=== PATIENT | male | born 1970 | race Caucasian/White ===

== ENCOUNTER → 2016-03-06 | Outpatient (CLI) | payer BC | LOC: LAB 09:52 | DX: I10 Essential (primary) hypertension (principal) ==

== ENCOUNTER → 2016-10-20 | Outpatient (CLI) | payer BC | LOC: RAD 10:00 | DX: M46.1 Sacroiliitis, not elsewhere classified (principal); M54.5 Low back pain ==

== ENCOUNTER → 2016-11-09 | Outpatient (CLI) | payer BC | LOC: LAB 14:35 | DX: R05 Cough (principal) ==

== ENCOUNTER 2016-11-25 10:15 | Outpatient (RCR) | payer BC ==
[2016-11-25] MEDS ORDERED: HYDROCHLOROTHIA1 T15 PO (13:34)
== END 2016-11-25 11:00 | disposition home or self-care (01) ==
LOC: PT 10:15
DX: M46.1 Sacroiliitis, not elsewhere classified (principal); M54.5 Low back pain

== ENCOUNTER → 2016-11-25 | Outpatient (CLI) | payer BC ==
[~2016-11-25] VITALS: Ht 185.4 cm; Wt 108.6 kg
[~2016-11-25] MED LIST: HYDROCHLOROTHIA1 T15 PO
[2016-11-25 13:10] VITALS: BP 143/96
[2016-11-25 14:26] VITALS: BP 152/96
== END ==
LOC: RAD 11:49
DX: R05 Cough (principal); R50.9 Fever, unspecified; R06.00 Dyspnea, unspecified; R91.8 Other nonspecific abnormal finding of lung field
CPT/HCPCS: J7030

== ENCOUNTER → 2016-12-15 | Outpatient (CLI) | payer BC ==
[2016-11-25 14:26] VITALS: BP 152/96
[2016-12-15 09:45] LABS: ALBUMIN 3.9 g/dL (3.5-5.0); BUN/CREATININE RATIO 9.6 (6.0-26.0); CALCIUM 8.9 mg/dL (8.4-10.2); POTASSIUM 3.7 mmol/L (3.6-5.0); TOTAL BILIRUBIN 0.8 mg/dL (0.2-1.3); TOTAL PROTEIN 6.9 g/dL (6.3-8.2)
== END ==
LOC: LAB 08:56
PROVIDERS: Nurse Practitioner Family
DX: E29.1 Testicular hypofunction (principal)

== ENCOUNTER → 2016-12-18 | Outpatient (CLI) | payer BC ==
[2016-11-25 14:26] VITALS: BP 152/96
== END ==
LOC: RAD 13:24
DX: J18.1 Lobar pneumonia, unspecified organism (principal)

== ENCOUNTER → 2016-12-21 | Outpatient (CLI) | payer BC ==
[2016-11-25 14:26] VITALS: BP 152/96
== END ==
LOC: LAB 10:51
DX: E29.1 Testicular hypofunction (principal)

== ENCOUNTER → 2016-12-23 | Outpatient (CLI) | payer BC ==
[2016-11-25 14:26] VITALS: BP 152/96
== END ==
LOC: RAD 07:00
DX: M51.36 Other intervertebral disc degeneration, lumbar region (principal)

== ENCOUNTER → 2017-01-04 | Outpatient (CLI) | payer BC ==
[2016-11-25 14:26] VITALS: BP 152/96
== END ==
LOC: RAD 14:23
DX: R05 Cough (principal)

== ENCOUNTER → 2017-04-14 | Outpatient (CLI) | payer BC ==
[2016-11-25 14:26] VITALS: BP 152/96
[2017-04-14 11:06] LABS: STREP SCREEN NEGATIVE (NEGATIVE)
== END ==
LOC: LAB 10:30
PROVIDERS: Family Medicine
DX: J06.9 Acute upper respiratory infection, unspecified (principal)

== ENCOUNTER → 2017-10-27 | Outpatient (CLI) | payer BC ==
[2016-11-25 14:26] VITALS: BP 152/96
[2017-10-27 11:42] LABS: BASO # 0.1 (0.02-0.10); EOS # 0.1 (0.04-0.40); EOS % 1.3 % (0.0-4.0); MEAN CELL VOLUME 82 fl (78-100); MEAN CORPUSCULAR HEMOGLOBIN 29 pg (27-31); MEAN CORPUSCULAR HGB CONC 36 g/dL (33-37); MEAN PLATELET VOLUME 10.2 fl (7.4-10.4); MONO # 0.9 (0.20-0.80); NEU # 5.7 (1.40-6.50); PLATELET COUNT 285 K/mm3 (130-400); RED BLOOD COUNT 7.49 M/mm3 (4.20-5.60); RED CELL DISTRIBUTION WIDTH 15.6 % (11.5-14.5); WHITE BLOOD COUNT 8.8 K/mm3 (4.8-10.8)
[2017-10-27 11:52] LABS: ALBUMIN 4.9 g/dL (3.5-5.0); CALCIUM 9.6 mg/dL (8.4-10.2); POTASSIUM 4.2 mmol/L (3.6-5.0); TOTAL BILIRUBIN 1.8 mg/dL (0.2-1.3); TOTAL PROTEIN 8.4 g/dL (6.3-8.2)
[2017-10-27 12:03] LABS: HEMATOCRIT 61.4 % (42.0-52.0)
== END ==
LOC: LAB 10:53
PROVIDERS: Physician Assistant
DX: I10 Essential (primary) hypertension (principal); E29.1 Testicular hypofunction; G47.33 Obstructive sleep apnea (adult) (pediatric)

== ENCOUNTER → 2017-12-21 | Outpatient (CLI) | payer BC ==
[2016-11-25 14:26] VITALS: BP 152/96
[2017-12-21 15:23] LABS: BASO # 0.1 (0.02-0.10); EOS # 0.1 (0.04-0.40); EOS % 1.6 % (0.0-4.0); HEMATOCRIT 49.5 % (42.0-52.0); HEMOGLOBIN 17.5 g/dL (13.5-18.0); LYMPH# 1.5 (1.50-4.00); MEAN CELL VOLUME 82 fl (78-100); MEAN CORPUSCULAR HEMOGLOBIN 29 pg (27-31); MEAN CORPUSCULAR HGB CONC 35 g/dL (33-37); MEAN PLATELET VOLUME 10.3 fl (7.4-10.4); MONO # 0.6 (0.20-0.80); NEU # 4.1 (1.40-6.50); PLATELET COUNT 221 K/mm3 (130-400); RED BLOOD COUNT 6.02 M/mm3 (4.20-5.60); RED CELL DISTRIBUTION WIDTH 13.9 % (11.5-14.5); WHITE BLOOD COUNT 6.3 K/mm3 (4.8-10.8)
== END ==
LOC: LAB 14:42
PROVIDERS: Internal Medicine
DX: D75.1 Secondary polycythemia (principal)

== ENCOUNTER → 2017-12-28 | Outpatient (CLI) | payer BC ==
[2016-11-25 14:26] VITALS: BP 152/96
[2017-12-28 10:22] LABS: BASO # 0.1 (0.02-0.10); EOS # 0.2 (0.04-0.40); EOS % 2.6 % (0.0-4.0); HEMATOCRIT 48.1 % (42.0-52.0); LYMPH# 1.5 (1.50-4.00); MEAN CELL VOLUME 83 fl (78-100); MEAN CORPUSCULAR HEMOGLOBIN 30 pg (27-31); MEAN CORPUSCULAR HGB CONC 35 g/dL (33-37); MEAN PLATELET VOLUME 9.8 fl (7.4-10.4); MONO # 0.6 (0.20-0.80); NEU # 3.5 (1.40-6.50); PLATELET COUNT 235 K/mm3 (130-400); RED BLOOD COUNT 5.77 M/mm3 (4.20-5.60); RED CELL DISTRIBUTION WIDTH 14.1 % (11.5-14.5); WHITE BLOOD COUNT 5.9 K/mm3 (4.8-10.8)
== END ==
LOC: LAB 10:06
PROVIDERS: Physician Assistant
DX: D75.1 Secondary polycythemia (principal)

== ENCOUNTER → 2018-01-04 | Outpatient (CLI) | payer BC ==
[2016-11-25 14:26] VITALS: BP 152/96
[2018-01-04 15:23] LABS: EOS # 0.2 (0.04-0.40); EOS % 2.3 % (0.0-4.0); HEMATOCRIT 45.8 % (42.0-52.0); HEMOGLOBIN 16.3 g/dL (13.5-18.0); LYMPH# 1.8 (1.50-4.00); MEAN CELL VOLUME 84 fl (78-100); MEAN CORPUSCULAR HEMOGLOBIN 30 pg (27-31); MEAN CORPUSCULAR HGB CONC 36 g/dL (33-37); MEAN PLATELET VOLUME 10.8 fl (7.4-10.4); MONO # 0.5 (0.20-0.80); NEU # 4.5 (1.40-6.50); PLATELET COUNT 265 K/mm3 (130-400); RED BLOOD COUNT 5.48 M/mm3 (4.20-5.60); RED CELL DISTRIBUTION WIDTH 14.4 % (11.5-14.5); WHITE BLOOD COUNT 7.1 K/mm3 (4.8-10.8)
== END ==
LOC: LAB 15:00
PROVIDERS: Physician Assistant
DX: D75.1 Secondary polycythemia (principal)

== ENCOUNTER → 2018-01-11 | Outpatient (CLI) | payer BC ==
[2016-11-25 14:26] VITALS: BP 152/96
[2018-01-11 15:03] LABS: HEMATOCRIT 45.2 % (42.0-52.0); HEMOGLOBIN 15.9 g/dL (13.5-18.0)
== END ==
LOC: LAB 14:39
PROVIDERS: Internal Medicine
DX: D75.1 Secondary polycythemia (principal)

== ENCOUNTER → 2018-01-18 | Outpatient (CLI) | payer BC ==
[2016-11-25 14:26] VITALS: BP 152/96
[2018-01-18 14:56] LABS: BASO # 0.1 (0.02-0.10); EOS # 0.1 (0.04-0.40); EOS % 2.5 % (0.0-4.0); HEMOGLOBIN 15.9 g/dL (13.5-18.0); LYMPH# 1.8 (1.50-4.00); MEAN CELL VOLUME 85 fl (78-100); MEAN CORPUSCULAR HEMOGLOBIN 30 pg (27-31); MEAN CORPUSCULAR HGB CONC 35 g/dL (33-37); MONO # 0.6 (0.20-0.80); NEU # 3.1 (1.40-6.50); PLATELET COUNT 224 K/mm3 (130-400); RED BLOOD COUNT 5.31 M/mm3 (4.20-5.60); RED CELL DISTRIBUTION WIDTH 14.5 % (11.5-14.5); WHITE BLOOD COUNT 5.6 K/mm3 (4.8-10.8)
== END ==
LOC: LAB 14:08
PROVIDERS: Internal Medicine
DX: D75.1 Secondary polycythemia (principal)

== ENCOUNTER → 2018-02-16 | Outpatient (CLI) | payer BC ==
[2016-11-25 14:26] VITALS: BP 152/96
[2018-02-16 11:20] LABS: EOS # 0.1 (0.04-0.40); EOS % 2.2 % (0.0-4.0); HEMOGLOBIN 16.5 g/dL (13.5-18.0); LYMPH# 1.6 (1.50-4.00); MEAN CELL VOLUME 87 fl (78-100); MEAN CORPUSCULAR HEMOGLOBIN 30 pg (27-31); MEAN CORPUSCULAR HGB CONC 34 g/dL (33-37); MEAN PLATELET VOLUME 10.1 fl (7.4-10.4); MONO # 0.6 (0.20-0.80); NEU # 3.9 (1.40-6.50); PLATELET COUNT 248 K/mm3 (130-400); RED BLOOD COUNT 5.53 M/mm3 (4.20-5.60); RED CELL DISTRIBUTION WIDTH 13.5 % (11.5-14.5); WHITE BLOOD COUNT 6.3 K/mm3 (4.8-10.8)
== END ==
LOC: LAB 10:57
PROVIDERS: Physician Assistant
DX: I10 Essential (primary) hypertension (principal); E29.1 Testicular hypofunction; L73.9 Follicular disorder, unspecified

== ENCOUNTER 2018-03-01 10:11 | Emergency (ER) | payer BC ==
[~2018-03-01] VITALS: Ht 185.4 cm; Wt 119.1 kg
[2018-03-01] MEDS ORDERED: MAALOX ADVANCED1 CTB PO (11:10)
[2018-03-01] MEDS ORDERED: TESTOSTERO100 MG/1 M IM (11:10)
[2018-03-01 11:19] LABS: EOS # 0.1 (0.04-0.40); EOS % 1.4 % (0.0-4.0); HEMATOCRIT 49.9 % (42.0-52.0); HEMOGLOBIN 17.5 g/dL (13.5-18.0); LYMPH# 1.4 (1.50-4.00); MEAN CELL VOLUME 85 fl (78-100); MEAN CORPUSCULAR HEMOGLOBIN 30 pg (27-31); MEAN CORPUSCULAR HGB CONC 35 g/dL (33-37); MEAN PLATELET VOLUME 10.4 fl (7.4-10.4); MONO # 0.6 (0.20-0.80); NEU # 5.9 (1.40-6.50); PLATELET COUNT 204 K/mm3 (130-400); RED BLOOD COUNT 5.84 M/mm3 (4.20-5.60); RED CELL DISTRIBUTION WIDTH 13.1 % (11.5-14.5)
[2018-03-01 12:22] LABS: ALBUMIN 4.9 g/dL (3.5-5.0); CALCIUM 9.7 mg/dL (8.4-10.2); POTASSIUM 4.1 mmol/L (3.6-5.0); TOTAL BILIRUBIN 0.7 mg/dL (0.2-1.3)
[2018-03-01] MEDS ORDERED: NORCO 325 MG-51 TA1 PO (13:06)
[2018-03-01] MEDS ORDERED: ZOFRAN4 M2 PO (13:06)
[2018-03-01 13:15] VITALS: BP 142/99
== END 2018-03-01 13:20 | disposition home or self-care (01) ==
LOC: ED 10:11
PROVIDERS: Nurse Practitioner Primary Care
DX: R10.11 Right upper quadrant pain (principal); I10 Essential (primary) hypertension
CPT/HCPCS: C9113; J2405

== ENCOUNTER → 2018-03-02 | Outpatient (CLI) | payer BC ==
[2018-03-01 13:15] VITALS: BP 142/99
[~2018-03-02] MED LIST changes: +MAALOX ADVANCED1 CTB PO; +NORCO 325 MG-51 TA1 PO; +TESTOSTERO100 MG/1 M IM; +ZOFRAN4 M2 PO
== END ==
LOC: RAD 08:46
DX: R10.11 Right upper quadrant pain (principal)

== ENCOUNTER → 2018-04-07 | Outpatient (CLI) | payer BC | LOC: RAD 08:49 | DX: K82.9 Disease of gallbladder, unspecified (principal); N28.89 Other specified disorders of kidney and ureter; K80.10 Calculus of gallbladder with chronic cholecystitis without obstruction | CPT/HCPCS: Q9967 ==

== ENCOUNTER → 2018-08-02 | Outpatient (CLI) | payer OTHER | LOC: RAD 11:12 | DX: S20.219A Contusion of unspecified front wall of thorax, initial encounter (principal); M25.531 Pain in right wrist; M54.2 Cervicalgia; M25.511 Pain in right shoulder ==

== ENCOUNTER 2018-12-08 11:30 | Outpatient (RCR) | payer BC ==
[~2018-12-08 11:30] MED LIST changes: +DEPO-TESTOS200 MG/M1 IM; +LISINOPRIL40 MG PO; +VIAGRA 25MG TAB25 MG
[2018-12-22] MEDS ORDERED: LEXAPRO 10MG10 MG PO (11:10)
== END 2018-12-08 12:00 | disposition home or self-care (01) ==
LOC: PT 11:30
DX: S46.819A Strain of other muscles, fascia and tendons at shoulder and upper arm level, unspecified arm, initial encounter (principal)

== ENCOUNTER → 2018-12-22 | Outpatient (CLI) | payer BC ==
[2018-12-08 11:34] VITALS: BP 162/108
[~2018-12-22] MED LIST changes: +LEXAPRO 10MG10 MG PO
[2018-12-22 11:02] LABS: HEMATOCRIT 52.3 % (42.0-52.0); HEMOGLOBIN 17.9 g/dL (13.5-18.0); RED BLOOD COUNT 6.2 M/mm3 (4.20-5.60); RED CELL DISTRIBUTION WIDTH 14.6 % (11.5-14.5); WHITE BLOOD COUNT 4.9 K/mm3 (4.8-10.8)
== END ==
LOC: LAB 10:39
PROVIDERS: Urology
DX: C64.1 Malignant neoplasm of right kidney, except renal pelvis (principal)

== ENCOUNTER → 2019-01-19 | Outpatient (CLI) | payer BC ==
[2019-01-05 11:17] VITALS: BP 149/109
[2019-01-19 10:49] LABS: HEMATOCRIT 52.6 % (42.0-52.0); HEMOGLOBIN 17.8 g/dL (13.5-18.0); MEAN PLATELET VOLUME 10.1 fl (7.4-10.4); RED BLOOD COUNT 6.22 M/mm3 (4.20-5.60); RED CELL DISTRIBUTION WIDTH 13.9 % (11.5-14.5)
== END ==
LOC: LAB 10:24
PROVIDERS: Urology
DX: C64.1 Malignant neoplasm of right kidney, except renal pelvis (principal)

== ENCOUNTER 2019-02-16 12:51 | Outpatient (RCR) | payer BC ==
[2018-11-24 14:04] VITALS: BP 136/86
[2018-12-08 11:34] VITALS: BP 162/108
[2018-12-22 11:08] VITALS: BP 157/119
[2019-01-05 11:17] VITALS: BP 149/109
[2019-01-19 10:48] VITALS: BP 147/115
[2019-01-19 10:59] VITALS: BP 147/118
[2019-02-02 11:02] VITALS: BP 154/98
[~2019-02-16] VITALS: Ht 185.4 cm; Wt 111.4 kg
[2019-02-16 13:00] VITALS: BP 159/97
== END 2019-02-22 | disposition still patient (30) ==
LOC: AMSURD
DX: R97.20 Elevated prostate specific antigen [PSA] (principal)
CPT/HCPCS: J1071

== ENCOUNTER → 2019-02-16 | Outpatient (CLI) | payer BC ==
[2019-02-02 11:02] VITALS: BP 154/98
[2019-02-16 12:53] LABS: HEMATOCRIT 58.5 % (42.0-52.0); HEMOGLOBIN 19.4 g/dL (13.5-18.0); MEAN PLATELET VOLUME 9.9 fl (7.4-10.4); WHITE BLOOD COUNT 6.7 K/mm3 (4.8-10.8)
== END ==
LOC: LAB 12:43
PROVIDERS: Urology
DX: C64.1 Malignant neoplasm of right kidney, except renal pelvis (principal)

== ENCOUNTER → 2019-03-23 | Outpatient (CLI) | payer BC ==
[2019-03-09 11:08] VITALS: BP 145/91
[~2019-03-23] MED LIST changes: +AMLODIPINE BESYL5 MG PO; +SILDENAFIL CITR20 M1 PO
[2019-03-23 11:27] LABS: HEMATOCRIT 59.2 % (42.0-52.0); RED BLOOD COUNT 7.32 M/mm3 (4.20-5.60); RED CELL DISTRIBUTION WIDTH 15.1 % (11.5-14.5); WHITE BLOOD COUNT 5.9 K/mm3 (4.8-10.8)
== END ==
LOC: LAB 10:59
PROVIDERS: Urology
DX: R97.20 Elevated prostate specific antigen [PSA] (principal)

== ENCOUNTER → 2019-05-19 | Outpatient (CLI) | payer BC ==
[2019-05-18 14:37] VITALS: BP 158/92
[~2019-05-19] MED LIST changes: +VALIUM 5MG T5 MG/TAB PO
== END ==
LOC: RAD 10:00
DX: C64.1 Malignant neoplasm of right kidney, except renal pelvis (principal); N28.89 Other specified disorders of kidney and ureter; Z90.5 Acquired absence of kidney

== ENCOUNTER → 2019-06-05 | Outpatient (CLI) | payer BC ==
[2019-05-18 14:37] VITALS: BP 158/92
[~2019-06-05] MED LIST changes: +BYSTOLIC10 MG PO
[2019-06-06 16:08] LABS: MICROALBUMIN RANDOM <0.5 mg/dL (0.0-1.7)
== END ==
LOC: LAB 15:39
PROVIDERS: Internal Medicine Interventional Cardiology
DX: I10 Essential (primary) hypertension (principal)

== ENCOUNTER → 2019-06-30 | Outpatient (CLI) | payer BC ==
[2019-06-05 15:52] VITALS: BP 133/86
[2019-06-30 14:06] LABS: HEMATOCRIT 57.3 % (42.0-52.0); HEMOGLOBIN 19.9 g/dL (13.5-18.0)
== END ==
LOC: LAB 13:52
PROVIDERS: Urology
DX: D75.1 Secondary polycythemia (principal); E29.1 Testicular hypofunction

== ENCOUNTER → 2019-08-10 | Outpatient (CLI) | payer BC ==
[2019-07-27 11:25] VITALS: BP 124/84
[~2019-08-10] MED LIST changes: +BUSPIRONE5 MG PO
[2019-08-10 10:37] LABS: EOS # 0.1 (0.04-0.40); HEMATOCRIT 55.8 % (42.0-52.0); HEMOGLOBIN 18.9 g/dL (13.5-18.0); LYMPH# 1.5 (1.50-4.00); MEAN CELL VOLUME 81 fl (78-100); MEAN CORPUSCULAR HEMOGLOBIN 27 pg (27-31); MEAN CORPUSCULAR HGB CONC 34 g/dL (33-37); MEAN PLATELET VOLUME 9.9 fl (7.4-10.4); MONO # 0.7 (0.20-0.80); NEU # 4.6 (1.40-6.50); PLATELET COUNT 289 K/mm3 (130-400); RED CELL DISTRIBUTION WIDTH 14.2 % (11.5-14.5); WHITE BLOOD COUNT 7.1 K/mm3 (4.8-10.8)
== END ==
LOC: LAB 10:07
PROVIDERS: Urology
DX: D75.1 Secondary polycythemia (principal); E29.1 Testicular hypofunction

== ENCOUNTER 2019-08-24 10:35 | Outpatient (RCR) | payer BC ==
[2019-06-05 15:52] VITALS: BP 133/86
[2019-06-30 14:51] VITALS: BP 129/99
[2019-07-13 11:15] VITALS: BP 123/86
[2019-07-27 11:25] VITALS: BP 124/84
[2019-08-10 11:15] VITALS: BP 112/80
[~2019-08-24] VITALS: Ht 185.4 cm; Wt 111.4 kg
[2019-08-24 10:30] VITALS: BP 134/90
== END 2019-09-03 | disposition still patient (30) ==
LOC: AMSURD
DX: D75.1 Secondary polycythemia (principal)
CPT/HCPCS: J1071

== ENCOUNTER → 2019-09-06 | Outpatient (CLI) | payer BC ==
[2019-08-24 10:30] VITALS: BP 134/90
[2019-09-06 12:41] LABS: HEMATOCRIT 55.5 % (42.0-52.0); HEMOGLOBIN 18.3 g/dL (13.5-18.0)
== END ==
LOC: LAB 12:29
PROVIDERS: Physician Assistant
DX: D75.1 Secondary polycythemia (principal)

== ENCOUNTER → 2019-11-09 | Outpatient (CLI) | payer BC ==
[2019-10-26 11:11] VITALS: BP 152/96
[2019-11-09 10:18] LABS: HEMATOCRIT 49.5 % (42.0-52.0); HEMOGLOBIN 16.2 g/dL (13.5-18.0)
== END ==
LOC: LAB 10:06
PROVIDERS: Urology
DX: D75.1 Secondary polycythemia (principal); E29.1 Testicular hypofunction

== ENCOUNTER → 2019-11-23 10:51 | Outpatient (RCR) | payer BC ==
[2019-09-06 13:40] VITALS: BP 143/92
[2019-10-12 11:49] VITALS: BP 120/86
[2019-10-26 11:11] VITALS: BP 152/96
[2019-11-09 10:46] VITALS: BP 144/101
[~2019-11-23] VITALS: Ht 185.4 cm; Wt 111.4 kg
[2019-11-23 10:50] VITALS: BP 172/86
== END | disposition still patient (30) ==
LOC: AMSURD 09-04
DX: D75.1 Secondary polycythemia (principal)
CPT/HCPCS: J1071

== ENCOUNTER 2019-12-07 11:20 | Outpatient (RCR) | payer BC ==
[~2019-12-07] VITALS: Ht 185.4 cm; Wt 111.4 kg
[2019-12-07 11:32] VITALS: BP 147/86
== END 2020-03-04 | disposition home or self-care (01) ==
LOC: AMSURD
DX: D76.1 Hemophagocytic lymphohistiocytosis (principal)
CPT/HCPCS: J1071

== ENCOUNTER → 2019-12-07 | Outpatient (CLI) | payer BC ==
[2019-11-23 10:50] VITALS: BP 172/86
[2019-12-07 10:39] LABS: HEMOGLOBIN 16.1 g/dL (13.5-18.0)
== END ==
LOC: LAB 10:29
PROVIDERS: Urology
DX: D76.1 Hemophagocytic lymphohistiocytosis (principal)

== ENCOUNTER → 2020-01-03 | Outpatient (CLI) | payer BC ==
[2019-12-07 11:32] VITALS: BP 147/86
== END ==
LOC: LAB 07:39
DX: U07.1 COVID-19 (principal)

== ENCOUNTER → 2020-02-01 | Outpatient (CLI) | payer BC ==
[2020-02-01 11:45] LABS: HEMATOCRIT 50.7 % (42.0-52.0); HEMOGLOBIN 16.2 g/dL (13.5-18.0)
== END ==
LOC: LAB 11:16
PROVIDERS: Urology
DX: D75.1 Secondary polycythemia (principal)

== ENCOUNTER → 2020-06-04 | Outpatient (CLI) | payer BC ==
[2020-06-04 08:45] LABS: POTASSIUM 4.1 mmol/L (3.5-5.1)
[2020-06-04 08:46] LABS: CALCIUM 8.9 mg/dL (8.3-10.5)
[2020-06-04 08:49] LABS: BASO # 0.1 (0.02-0.10); EOS # 0.2 (0.04-0.40); EOS % 2.7 % (0.0-4.0); HEMATOCRIT 47.4 % (42.0-52.0); HEMOGLOBIN 15.6 g/dL (13.5-18.0); LYMPH# 2.3 (1.50-4.00); MEAN CELL VOLUME 77 fl (78-100); MEAN CORPUSCULAR HEMOGLOBIN 25 pg (27-31); MEAN CORPUSCULAR HGB CONC 33 g/dL (33-37); MEAN PLATELET VOLUME 10.2 fl (7.4-10.4); MONO # 0.6 (0.20-0.80); NEU # 3.6 (1.40-6.50); PLATELET COUNT 242 K/mm3 (130-400); RED BLOOD COUNT 6.18 M/mm3 (4.20-5.60); RED CELL DISTRIBUTION WIDTH 15.9 % (11.5-14.5); WHITE BLOOD COUNT 6.8 K/mm3 (4.8-10.8)
== END ==
LOC: LAB 07:45 → RAD 08:00
PROVIDERS: Urology
DX: C64.1 Malignant neoplasm of right kidney, except renal pelvis (principal); E29.1 Testicular hypofunction; Z90.49 Acquired absence of other specified parts of digestive tract; Z98.890 Other specified postprocedural states
CPT/HCPCS: Q9967

== ENCOUNTER → 2021-06-18 | Outpatient (CLI) | payer BC ==
[2021-06-18 10:53] LABS: HEMATOCRIT 50.3 % (42.0-52.0); HEMOGLOBIN 17.8 g/dL (13.5-18.0); MEAN PLATELET VOLUME 9.9 fl (7.4-10.4); RED BLOOD COUNT 5.96 M/mm3 (4.20-5.60); RED CELL DISTRIBUTION WIDTH 12.9 % (11.5-14.5)
== END ==
LOC: RAD 08:59 → LAB 08:59 → RAD 09:00
PROVIDERS: Urology
DX: Z12.5 Encounter for screening for malignant neoplasm of prostate (principal); E29.1 Testicular hypofunction

== ENCOUNTER → 2021-08-20 | Outpatient (CLI) | payer BC ==
[2021-08-20 11:53] LABS: POTASSIUM 4.6 mmol/L (3.5-5.1)
[2021-08-20 11:54] LABS: ALBUMIN 4.6 g/dL (3.5-5.0)
[2021-08-20 11:55] LABS: CALCIUM 9.4 mg/dL (8.3-10.5)
[2021-08-20 11:56] LABS: TOTAL PROTEIN 7.5 g/dL (6.4-8.3)
[2021-08-20 11:58] LABS: TOTAL BILIRUBIN 0.8 mg/dL (0.2-1.2)
== END ==
LOC: LAB 11:05
PROVIDERS: Physician Assistant
DX: Z00.00 Encounter for general adult medical examination without abnormal findings (principal); Z13.1 Encounter for screening for diabetes mellitus; Z13.29 Encounter for screening for other suspected endocrine disorder; I10 Essential (primary) hypertension; H93.11 Tinnitus, right ear; B35.1 Tinea unguium; K90.9 Intestinal malabsorption, unspecified; R20.0 Anesthesia of skin

== ENCOUNTER → 2021-09-18 | Outpatient (CLI) | payer BC ==
[2021-09-18 12:21] LABS: ALBUMIN 4.3 g/dL (3.5-5.0)
[2021-09-18 12:24] LABS: TOTAL PROTEIN 7.2 g/dL (6.4-8.3)
[2021-09-18 12:26] LABS: TOTAL BILIRUBIN 0.7 mg/dL (0.2-1.2)
[2021-09-18 12:30] LABS: DIRECT BILIRUBIN 0.2 mg/dL (0.0-0.5)
== END ==
LOC: LAB 11:28
PROVIDERS: Physician Assistant
DX: Z51.81 Encounter for therapeutic drug level monitoring (principal)

== ENCOUNTER → 2022-04-24 | Outpatient (CLI) | payer BC | LOC: LAB 10:31 | DX: B34.9 Viral infection, unspecified (principal); Z20.822 Contact with and (suspected) exposure to COVID-19 ==

== ENCOUNTER → 2022-12-22 | Outpatient (CLI) | payer BC ==
[2022-12-22 13:11] LABS: ALBUMIN 4.5 g/dL (3.5-5.0)
[2022-12-22 13:14] LABS: TOTAL PROTEIN 7.5 g/dL (6.4-8.3)
[2022-12-22 13:16] LABS: TOTAL BILIRUBIN 0.7 mg/dL (0.2-1.2)
[2022-12-22 13:19] LABS: DIRECT BILIRUBIN 0.3 mg/dL (0.0-0.5)
== END ==
LOC: LAB 12:44
PROVIDERS: Physician Assistant
DX: B35.1 Tinea unguium (principal)

== ENCOUNTER → 2024-06-07 | Outpatient (CLI) | payer BC ==
[2024-06-07 14:34] LABS: BASO # 0.04 K/mm3 (0.02-0.10); EOS # 0.17 K/mm3 (0.04-0.40); EOS % 2.7 % (0.0-4.0); HEMATOCRIT 47.6 % (42.0-52.0); HEMOGLOBIN 16.8 g/dL (13.5-18.0); LYMPH# 1.74 K/mm3 (1.50-4.00); MEAN CELL VOLUME 83 fl (78-100); MEAN CORPUSCULAR HEMOGLOBIN 29 pg (27-31); MEAN CORPUSCULAR HGB CONC 35 g/dL (33-37); MEAN PLATELET VOLUME 9.7 fl (7.4-10.4); MONO # 0.49 K/mm3 (0.20-0.80); NEU # 3.89 K/mm3 (1.40-6.50); PLATELET COUNT 208 K/mm3 (130-400); RED BLOOD COUNT 5.72 M/mm3 (4.20-5.60); RED CELL DISTRIBUTION WIDTH 12.7 % (11.5-14.5); WHITE BLOOD COUNT 6.4 K/mm3 (4.8-10.8)
[2024-06-07 14:40] LABS: ALBUMIN 4.2 g/dL (3.5-5.0)
[2024-06-07 14:41] LABS: CALCIUM 8.9 mg/dL (8.3-10.5)
[2024-06-07 14:42] LABS: TOTAL PROTEIN 7.4 g/dL (6.4-8.3)
[2024-06-07 14:44] LABS: TOTAL BILIRUBIN 0.6 mg/dL (0.2-1.2)
== END ==
LOC: LAB 13:58
PROVIDERS: Physician Assistant
DX: Z12.5 Encounter for screening for malignant neoplasm of prostate (principal); Z13.1 Encounter for screening for diabetes mellitus; Z13.29 Encounter for screening for other suspected endocrine disorder; I10 Essential (primary) hypertension; E78.5 Hyperlipidemia, unspecified; K90.9 Intestinal malabsorption, unspecified